=== PATIENT | female | born 1980 | race Two or more races ===

== ENCOUNTER 2020-08-09 09:15 | Inpatient (IN) | payer OTHER ==
[~2020-08-09] VITALS: Ht 170.2 cm; Wt 66.7 kg
[2020-08-09] MEDS ORDERED: SYNTHROID125 MCG PO (12:52)
== END 2020-08-15 16:20 | disposition home or self-care (01) | DRG 743 ==
LOC: O/R 08-14 09:04 → OB/GYN 08-14 09:04 → SURH 08-14 09:15 → OB/GYN 08-15 00:40
PROVIDERS: ADMIT Obstetrics & Gynecology; ATTEND Obstetrics & Gynecology
PROC: 0UT9FZZ Resection of Uterus, Via Natural or Artificial Opening With Percutaneous Endoscopic Assistance (ICD-10-PCS; principal; 2020-08-15)
PROC: 0UB14ZZ Excision of Left Ovary, Percutaneous Endoscopic Approach (ICD-10-PCS; 2020-08-15)
PROC: 0UB74ZX Excision of Bilateral Fallopian Tubes, Percutaneous Endoscopic Approach, Diagnostic (ICD-10-PCS; 2020-08-15)
PROC: 0DNU4ZZ Release Omentum, Percutaneous Endoscopic Approach (ICD-10-PCS; 2020-08-15)
DX: D25.0 Submucous leiomyoma of uterus (principal); N83.292 Other ovarian cyst, left side; K66.0 Peritoneal adhesions (postprocedural) (postinfection); N72 Inflammatory disease of cervix uteri; N80.1 Endometriosis of ovary; L72.0 Epidermal cyst; N83.8 Other noninflammatory disorders of ovary, fallopian tube and broad ligament